=== PATIENT | male | born 1955 | race Caucasian/White ===

== ENCOUNTER 2018-06-29 17:59 | Observation (INO) | payer MEDICARE, OTHER ==
[2018-06-29 22:06] LABS: ADD MAN DIFF? NO
[2018-06-29 22:08] LABS: BASOPHILS % 0.4 % (0.0-2.0); EOSINOPHILS # 0.1 10^3/ul (0.0-0.5); EOSINOPHILS % 1.8 % (0.0-7.0); HEMATOCRIT 41.6 % (42.0-52.0); HEMOGLOBIN 14.3 g/dl (14.0-18.0); LYMPHOCYTES # 2.6 10^3/ul (0.8-2.9); LYMPHOCYTES % 35.4 % (15.0-51.0); MEAN CORPUSCULAR HEMOGLOBIN 30.8 pg (29.0-33.0); MEAN CORPUSCULAR HGB CONC 34.4 g/dl (32.0-37.0); MEAN CORPUSCULAR VOLUME 89.5 fl (82.0-101.0); MEAN PLATELET VOLUME 9.4 fl (7.4-10.4); MONOCYTE # 0.7 10^3/ul (0.3-0.9); MONOCYTES % 9.3 % (0.0-11.0); NEUTROPHIL # 3.9 10^3/ul (1.6-7.5); NEUTROPHILS % 52.3 % (39.0-77.0); PLATELET COUNT 173 10^3/UL (140-415); RED BLOOD COUNT 4.65 10^6/ul (4.70-6.10); RED CELL DISTRIBUTION WIDTH 12.6 % (11.5-14.5)
[2018-06-29 22:08] LABS: WHITE BLOOD COUNT 7.4 10^3/ul (4.8-10.8)
[2018-06-29 22:26] LABS: ANION GAP 15 (8-16); BLOOD UREA NITROGEN 14 mg/dl (7-20); CALCIUM 9.8 mg/dl (8.4-10.2); CARBON DIOXIDE 21 mmol/L (21-31); CHLORIDE 109 mmol/L (97-110); CREATININE 0.81 mg/dl (0.61-1.24); GLUCOSE 106 mg/dl (70-220); POTASSIUM 4.2 mmol/L (3.5-5.1); SODIUM 141 mmol/L (135-144)
[2018-06-29 22:27] LABS: INR 0.96; PROTIME 12.9 Sec (11.9-14.9)
[2018-06-29 22:28] LABS: PARTIAL THROMBOPLASTIN TIME 26.3 Sec (25.0-35.0)
[2018-06-29 22:38] LABS: TROPONIN-I < 0.010 ng/ml (0.000-0.120)
[2018-06-30] MEDS ORDERED: BISACODYL (EC) 5 MG TAB PO (00:30)
[2018-06-30] MEDS ORDERED: ACETAMINOPHEN 325 MG TAB PO (00:30)
[2018-06-30] MEDS ORDERED: ONDANSETRON 4 MG INJ IV (00:30)
[2018-06-30] MEDS ORDERED: NACL 0.9% 3 ML SYG IV (00:30)
[2018-06-30] MEDS ORDERED: DOCUSATE SODIUM 100 MG CAP PO (00:30)
[2018-06-30] MEDS ORDERED: NON-FORMULARY/PATIENT OWN MED (Ergocalciferol (Vitamin D2) (Vitamin D2) 50,000 UNIT) XX (07:00)
[2018-06-30] MEDS: GEMFIBROZIL 600 MG TAB PO ×2 (09:00→20:13)
[2018-06-30] MEDS: FISH OIL 1,000 MG CAP PO ×2 (09:10→20:40)
[2018-06-30] MEDS: ASPIRIN (EC) 81 MG TAB PO (09:10)
[2018-06-30] MEDS: RANOLAZINE (SR) 500 MG TAB PO ×2 (10:58→20:40)
[2018-06-30] MEDS ORDERED: METFORMIN HCL PO (12:30)
[2018-06-30] MEDS ORDERED: [UNRECOGNIZED DRUG - OTHER] PO (12:30)
[2018-06-30] MEDS ORDERED: LINAGLIPTIN PO (12:30)
[2018-06-30] MEDS: LORAZEPAM 1 MG TAB PO (13:28)
[2018-06-30] MEDS: LINAGLIPTIN 5 MG TABLET PO (16:00)
[2018-06-30] MEDS: metFORMIN (XR) 500 MG TAB PO (16:00)
[2018-06-30 18:14] LABS: ADD UMIC YES; UR ASCORBIC ACID NEGATIVE (NEGATIVE); UR BILIRUBIN (Dip) NEGATIVE (NEGATIVE); UR BLOOD (Dip) 1+ mg/dL (NEGATIVE); UR CLARITY CLEAR (CLEAR); UR COLOR STRAW (YELLOW); UR GLUCOSE (Dip) NEGATIVE (NEGATIVE); UR KETONES (Dip) NEGATIVE (NEGATIVE); UR LEUKOCYTE ESTERASE (Dip) NEGATIVE Leu/ul (NEGATIVE); UR NITRITE (Dip) NEGATIVE (NEGATIVE); UR RBC 2 /HPF (0-5); UR SPECIFIC GRAVITY (Dip) 1.013 (1.003-1.030); UR TOTAL PROTEIN (Dip) NEGATIVE (NEGATIVE); UR UROBILINOGEN (Dip) NEGATIVE (NEGATIVE); UR WBC 0 /HPF (0-5)
[2018-06-30 18:58] LABS: AMPHETAMINE/METHAMPHETAMINE NEGATIVE (NEGATIVE); BARBITURATES NEGATIVE (NEGATIVE); BENZODIAZEPINES NEGATIVE (NEGATIVE); CANNABINOIDS NEGATIVE (NEGATIVE); COCAINE NEGATIVE (NEGATIVE); OPIATES NEGATIVE (NEGATIVE)
[2018-06-30] MEDS: ATORVASTATIN 40 MG TAB PO (20:13)
[2018-06-30] MEDS: DOXAZOSIN 2 MG TAB PO (20:39)
[2018-06-30] MEDS: RANITIDINE 150 MG TAB PO (20:40)
[2018-06-30] MEDS: ACCU-CHEK XX (20:41)
[2018-06-30] MEDS ORDERED: LORAZEPAM 1 MG TAB PO (22:00)
[2018-06-30] MEDS: NICOTINE (14 MG/24 HR) PATCH TRANSDERM (22:15)
[2018-07-01] MEDS: ACCU-CHEK XX ×3 (07:32→17:51)
[2018-07-01] MEDS: metFORMIN (XR) 500 MG TAB PO (08:19)
[2018-07-01] MEDS: LINAGLIPTIN 5 MG TABLET PO (08:19)
[2018-07-01] MEDS: FISH OIL 1,000 MG CAP PO (08:25)
[2018-07-01] MEDS: RANOLAZINE (SR) 500 MG TAB PO (08:25)
[2018-07-01] MEDS: GEMFIBROZIL 600 MG TAB PO (08:25)
[2018-07-01] MEDS: ASPIRIN (EC) 81 MG TAB PO (08:27)
[2018-07-05] MEDS ORDERED: ERGOCALCIFEROL 50,000 UNIT CAP PO (10:00)
== END 2018-07-01 20:02 | disposition left against medical advice (07) ==
LOC: E/R 17:59 → ICU 23:56 → TEL 06-30 21:54
DX: H53.2 Diplopia (principal); H53.8 Other visual disturbances; I25.10 Atherosclerotic heart disease of native coronary artery without angina pectoris; R78.5 Finding of other psychotropic drug in blood; E11.9 Type 2 diabetes mellitus without complications; I10 Essential (primary) hypertension; F17.200 Nicotine dependence, unspecified, uncomplicated
CPT/HCPCS: 36415; 70450; 70544; 70548; 70551; 71045; 80048; 80307; 81001; 82962; 84484; 85025; 85610; 85730; 87081; 93005; 93306; 97161; 99217; 99285-25